=== PATIENT | male | born 2000 | race Hispanic/Latino ===

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

== ENCOUNTER 2019-09-16 12:05 | Emergency (ER) | payer SELFPAY ==
--- NOTE | 2019-09-16 13:38 | RAD REPORT ---
EXAM DESCRIPTION: RAD - Humerus Right - 09/16/2019 1:18 pm CLINICAL HISTORY: Right arm pain status post trauma FINDINGS: No fracture is seen
--- NOTE | 2019-09-16 14:10 | EDPHYS ---
Physician Documentation [facility] Name: Mauro Ruth Age: 18 yrs Sex: Male : 2000 Arrival Date: 09/16/2019 Time: 12:07 Bed 12 Private MD: Unknown, Unknown ED Physician Eddie Mccullough HPI: 09/16 12:29 This 18 yrs old Male presents to ER via Ambulatory with complaints of Arm Pain.jmm 12:29 The patient or guardian complains of injury, pain. Onset: The symptoms/episode jmm began/occurred acutely, 1 week(s) ago. Modifying factors: The symptoms are alleviated by nothing. the symptoms are aggravated by movement. Associated signs and symptoms: Pertinent negatives: weakness. This is a 18 year old male with no chronic medical conditions that presents to the ED with complaints of right arm pain which began after hitting his elbow against metal 1 week ago. Patient states he developed a bruise 1 day later. States having some localized pain when he use the arm for strenuous activity. . Historical: - Allergies: 12:21 No Known Allergies; aa5 - PMHx: 12:21 None; aa5 - PSHx: 12:21 None; aa5 - Immunization history:: Adult Immunizations unknown. - Social history:: Smoking status: Patient/guardian denies using tobacco. - Ebola Screening: : No symptoms or risks identified at this time. ROS: 12:29 Constitutional: Negative for fever, chills, and weight loss, Cardiovascular: Negative jmm for chest pain, palpitations, and edema, Respiratory: Negative for shortness of breath, cough, wheezing, and pleuritic chest pain. 12:29 MS/extremity: Positive for injury or acute deformity, ecchymosis, pain. 12:29 All other systems are negative. Exam: 12:29 Constitutional: This is a well developed, well nourished patient who is awake, alert, jmm and in no acute distress. Head/Face: atraumatic. Eyes: EOMI, no conjunctival erythema appreciated ENT: Moist Mucus Membranes Neck: Trachea midline, Supple Chest/axilla: Normal chest wall appearance and motion. Cardiovascular: Regular rate and rhythm. 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 12:29 Skin: ecchymosis noted to the right distal humeral region. 12:29 Neuro: Orientation: is normal, Mentation: is normal, Memory: is normal. 12:29 Psych: Behavior/mood is pleasant, cooperative. Vital Signs: 12:21 BP 127 / 70; Pulse 72; Resp 18 S; Temp 98.5(TE); Pulse Ox 99% on R/A; Pain 8/10; aa5 MDM: 12:23 Patient medically screened. [facility] 12:32 Data reviewed: vital signs, nurses notes. Counseling: I had a detailed discussion with fiona the patient and/or guardian regarding: the historical points, exam findings, and any diagnostic results supporting the discharge/admit diagnosis, the need for outpatient follow up, to return to the emergency department if symptoms worsen or persist or if there are any questions or concerns that arise at home. ED course: FROM appreciated to the right elbow, no bony tenderness. Arm is NVI. I do not suspect fracture. Patient is advised to follow up with pcp and return to the ED if patient continues to have pain. . 09/16 12:34 Order name: Humerus Right XRAY; Complete Time: 14:08 [facility] Administered Medications: No medications were administered Disposition: 09/17 06:42 Co-signature as Attending Physician, Eddie Mccullough MD I agree with the assessment and tw4 plan of care. Disposition: 09/16/19 14:09 Discharged to Home. Impression: Contusion of right upper arm. - Condition is Stable. - Discharge Instructions: Contusion. - Work release form, Medication Reconciliation Form, Thank You Letter, Antibiotic Education, Prescription Opioid Use form. - Follow up: Private Physician; When: 2 - 3 days; Reason: Recheck today's complaints, Continuance of care, Re-evaluation by your physician. Signatures: Dispatcher [employer] EDMS Chester Gonzalez PA PA jmm Calderon, Audri, RN RN aa5 Eddie Mccullough MD MD tw4 Corrections: (The following items were deleted from the chart) 09/16 14:16 14:09 09/16/2019 14:09 Discharged to Home. Impression: Contusion of right upper arm. aa5 Condition is Stable. Forms are Medication Reconciliation Form, Thank You Letter, Antibiotic Education, Prescription Opioid Use. Follow up: Private Physician; When: 2 - 3 days; Reason: Recheck today's complaints, Continuance of care, Re-evaluation by your physician. fiona
--- NOTE | 2019-09-16 14:10 | ER ---
Nurse's Notes [facility] Name: Mauro Ruth Age: 18 yrs Sex: Male : 2000 Arrival Date: 09/16/2019 Time: 12:07 Bed 12 Private MD: Unknown, Unknown Diagnosis: Contusion of right upper arm Presentation: 09/16 12:20 Presenting complaint: Patient states: "I hit my right arm on some metal at work about a aa5 week ago but the pain has been getting worse". Bruising noted to right upper arm. Transition of care: patient was not received from another setting of care. Onset of symptoms was 2019. Risk Assessment: Do you want to hurt yourself or someone else? Patient reports no desire to harm self or others. Initial Sepsis Screen: Does the patient meet any 2 criteria? No. Patient's initial sepsis screen is negative. Does the patient have a suspected source of infection? No. Patient's initial sepsis screen is negative. Care prior to arrival: None. 12:20 Acuity: KATHY 4 aa5 12:20 Method Of Arrival: Ambulatory aa5 Historical: - Allergies: 12:21 No Known Allergies; aa5 - PMHx: 12:21 None; aa5 - PSHx: 12:21 None; aa5 - Immunization history:: Adult Immunizations unknown. - Social history:: Smoking status: Patient/guardian denies using tobacco. - Ebola Screening: : No symptoms or risks identified at this time. Screenin:20 Abuse screen: Denies threats or abuse. Nutritional screening: No deficits noted. aa5 Tuberculosis screening: No symptoms or risk factors identified. Fall Risk None identified. Assessment: 12:20 General: Appears comfortable, Behavior is calm, cooperative. Pain: Complains of pain in aa5 right tricep Pain does not radiate. Pain currently is 8 out of 10 on a pain scale. Quality of pain is described as aching, crampy, Is intermittent, Aggravated by movement to right arm. Neuro: Level of Consciousness is awake, alert, obeys commands, Oriented to person, place, time, situation. Cardiovascular: Patient's skin is warm and dry. Respiratory: Airway is patent Respiratory effort is even, unlabored, Respiratory pattern is regular, symmetrical. GI: No signs and/or symptoms were reported involving the gastrointestinal system. : No signs and/or symptoms were reported regarding the genitourinary system. EENT: No signs and/or symptoms were reported regarding the EENT system. Derm: Skin is pink, warm \\T\\ dry. Bruising that is dark purple, green, on right tricep. Musculoskeletal: Range of motion: intact in all extremities. 14:16 Reassessment: Patient is alert, oriented x 3, equal unlabored respirations, skin aa5 warm/dry/pink. Vital Signs: 12:21 BP 127 / 70; Pulse 72; Resp 18 S; Temp 98.5(TE); Pulse Ox 99% on R/A; Pain 8/10; aa5 ED Course: 12:07 Patient arrived in ED. ag5 12:07 Unknown, Unknown is Private Physician. ag5 12:11 Chester Gonzalez PA is PHCP. [facility] 12:11 Eddie Mccullough MD is Attending Physician. [facility] 12:21 Triage completed. aa5 12:21 Arm band placed on. aa5 12:21 Patient has correct armband on for positive identification. Call light in reach. Adult aa5 w/ patient. 12:22 Angelita Jaramillo, RN is Primary Nurse. aa5 13:24 Humerus Right XRAY In Process Unspecified. EDMS 14:16 No provider procedures requiring assistance completed. Patient did not have IV access aa5 during this emergency room visit. Administered Medications: No medications were administered Outcome: 14:09 Discharge ordered by . [facility] 14:16 Discharged to home ambulatory. aa5 14:16 Condition: stable 14:16 Discharge instructions given to patient, Instructed on discharge instructions, follow up and referral plans. Demonstrated understanding of instructions, follow-up care. 14:16 Patient left the ED. aa5 Signatures: Dispatcher [employer] EDMS Chester Gonzalez PA PA jmm Calderon, Audri, RN RN aa5 Rosa Maria Ramirez ag5
[2019-09-16 14:28] VITALS: BP 127/70; TEMP 98.5; O2SAT 99
== END 2019-09-16 14:16 | disposition home or self-care (01) ==
LOC: ER 12:05
DX: S40.021A Contusion of right upper arm, initial encounter (principal); W22.8XXA Striking against or struck by other objects, initial encounter; Y93.89 Activity, other specified; Y92.9 Unspecified place or not applicable; Y99.0 Civilian activity done for income or pay
CPT/HCPCS: 99283

== ENCOUNTER 2019-11-01 04:06 | Emergency (ER) | payer SELFPAY ==
[2019-11-01] MEDS ORDERED: ONDANSETRON 4 MG/2 ML VIAL ONE (05:40)
[2019-11-01] MEDS ORDERED: MORPHINE 4 MG/ML SYR ONE (05:40)
[2019-11-01] MEDS ORDERED: TETANUS & DIPHTHERIA TOX,ADULT 0.5 ML VIAL ONE (05:41)
[2019-11-01] MEDS ORDERED: CEFAZOLIN/SWI 1gm 1 GM/10 ML SYR ONE (05:41)
[2019-11-01 05:54] LABS: Absolute Lymphocytes (CBC) 2.3 K/uL (0.7-4.9); Basophils % 0.7 % (0-1.3); Hematocrit 43.4 % (39.6-49.0); MPV 7.6 fL (7.6-11.3); RBC Red Blood Cell Count 4.45 M/uL (4.33-5.43)
[2019-11-01 06:09] LABS: ALT/SGPT 29 U/L (12-78); AST/SGOT 26 U/L (15-37); Albumin 4.1 g/dL (3.4-5.0); Alkaline Phosphatase 72 U/L (45-117); BUN Blood Urea Nitrogen 12 mg/dL (7-18); Bicarbonate 25 mmol/L (21-32); Bilirubin Total 0.3 mg/dL (0.2-1.0); Glucose Level 97 mg/dL (74-106); Potassium 3.8 mmol/L (3.5-5.1); Protein, Total 7.4 g/dL (6.4-8.2); Sodium Level 142 mmol/L (136-145)
--- NOTE | 2019-11-01 06:50 | ER ---
Nurse's Notes [facility] Name: Mauro Ruth Age: 18 yrs Sex: Male : 2000 Arrival Date: 11/01/2019 Time: 04:08 Bed 4 Private MD: Diagnosis: Fall (on) (from) other stairs and steps;Zygomatic fracture, unspecified-left and the nasal process of the maxilla;Fracture of nasal bones;Laceration without foreign body of other part of head Presentation: 11/01 04:22 Presenting complaint: Patient states: Patient was walking up stairs of front porch and lp1 tripped, falling onto concrete, hitting left side of head; Denies any LOC, any other injuries; States feeling like vision is blurry to left eye. Transition of care: patient was not received from another setting of care. Mechanism of Injury: The problem was sustained at home, resulted from a fall, slipped, down stairs. Onset of symptoms was November 01, 2019 at 01:00. Risk Assessment: Do you want to hurt yourself or someone else? Patient reports no desire to harm self or others. Initial Sepsis Screen: Does the patient meet any 2 criteria? No. Patient's initial sepsis screen is negative. Does the patient have a suspected source of infection? No. Patient's initial sepsis screen is negative. Care prior to arrival: None. 04:22 Method Of Arrival: Ambulatory lp1 04:22 Acuity: KATHY 3 lp1 Historical: - Allergies: 04:25 No Known Allergies; lp1 - Home Meds: 04:25 None [Active]; lp1 - PMHx: 04:25 None; lp1 - PSHx: 04:25 Appendectomy; Arm surgery; lp1 - Immunization history:: Adult Immunizations up to date. - Coronavirus screen:: The patient has NOT traveled to [place] in the past 14 days. The patient has NOT had contact with known/suspected case of Coronavirus?. - Social history:: Smoking status: Patient reports the use of cigarette tobacco products, denies chronic smoking, but will smoke occasionally. - Family history:: not pertinent. - Ebola Screening: : No symptoms or risks identified at this time. Screenin:27 Abuse screen: Denies threats or abuse. Denies injuries from another. Nutritional lp1 screening: No deficits noted. Tuberculosis screening: No symptoms or risk factors identified. Fall Risk None identified. Assessment: 04:25 General: Appears in no apparent distress. Behavior is calm, cooperative, appropriate lp1 for age. Pain: Complains of pain in left temporal area, left mormon, left zygomatic area, left cheek and left mandible Pain currently is 8 out of 10 on a pain scale. Quality of pain is described as aching. Neuro: Level of Consciousness is awake, alert, obeys commands, Oriented to person, place, situation, Gait is steady, Pupils are PERRLA, Intact Reports blurred vision in left eye dizziness, headache. Cardiovascular: Patient's skin is warm and dry. Respiratory: Respiratory effort is even, unlabored. GI: Abdomen is non-distended. : No signs and/or symptoms were reported regarding the genitourinary system. EENT: No signs and/or symptoms were reported regarding the EENT system. Derm: Abrasion to left mormon area; Bruising to left mormon, cheek. Musculoskeletal: Circulation, motion, and sensation intact. 05:10 Reassessment: Patient states readiness to go home at this time; states "I just want to lp1 make sure I didn't need any stitches"; Patient educated on need for imaging due to significant amount of bruising to left side of face and limited ROM to jaw; Continues to states readiness to go home; Provider notified. 05:15 Reassessment: Dr. Cullen at bedside to discuss recommendation of imaging for safety lp1 of patient; Patient demonstrates understanding, agrees to have CT of head. 05:18 Reassessment: Patient to CT by wheelchair. lp1 05:31 Reassessment: Verbal order from Dr. Cullen for Morphine 4mg IV, Zofran 4mg IV for lp1 patient complaint of head throbbing. 06:39 Reassessment: Patient states no relief with medication administered; Provider notified. lp1 07:09 Reassessment: Patient states nausea; Provider notified; verbal order from Provider for lp1 Richards 10-325mg PO, Zofran 4mg PO. Reassessment: Patient demonstrates understanding of care of facial injuries, discharge instructions given by Dr. Cullen and follow up. Vital Signs: 04:24 BP 138 / 83; Pulse 105; Resp 18; Temp 98.4(O); Pulse Ox 100% on R/A; Weight 99.79 kg; lp1 Height 5 ft. 8 in. (172.72 cm); Pain 8/10; 06:30 BP 112 / 60; Pulse 90; Resp 18; Pulse Ox 99% on R/A; lp1 04:24 Body Mass Index 33.45 (99.79 kg, 172.72 cm) lp1 [place] Coma Score: 04:22 Eye Response: spontaneous(4). Verbal Response: oriented(5). Motor Response: obeys lp1 commands(6). Total: 15. ED Course: 04:08 Patient arrived in ED. ds1 04:09 Howard Patel, OSORIO is Primary Nurse. rv 04:24 Triage completed. lp1 04:24 Arm band placed on. lp1 04:25 Wound care: to laceration located on left temporal area was cleaned with Hibiclens, rv irrigated with normal saline, Patient tolerated well. NOT BLEEDING. LESS THAN HALF AN INCH IN LENGTH. 04:27 Patient has correct armband on for positive identification. Placed in gown. lp1 04:42 Conrad Cullen MD is Attending Physician. kedar 05:12 Radiology exam delayed due to Currently having X-Rays completed. kw1 05:50 Initial lab(s) drawn, by me, sent to lab. Inserted saline lock: 20 gauge in left lp1 antecubital area, using aseptic technique. 06:47 Baylee Looney MD is Referral Physician. kedar 07:09 No provider procedures requiring assistance completed. IV discontinued, No lp1 redness/swelling at site. Pressure dressing applied. 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 Exp: lp1 08/08/2021. Lot #: [id number]. } Route: IM; Site: left deltoid; 06:40 Follow up: Response: No adverse reaction lp1 07:11 Drug: Zofran 4 mg Route: PO; lp1 07:12 Follow up: Response: Medication administered at discharge. lp1 07:12 Drug: Richards 10 mg-325 mg 1 tabs Route: PO; lp1 07:12 Follow up: Response: Medication administered at discharge. lp1 Intake: 06:40 IV: 10ml; Total: 10ml. lp1 Outcome: 06:50 Discharge ordered by . kedar 07:11 Discharged to home ambulatory, with family. lp1 07:11 Condition: good 07:11 Discharge instructions given to patient, family, Instructed on discharge instructions, follow up and referral plans. medication usage, Demonstrated understanding of instructions, follow-up care, medications, Prescriptions given X 2. 07:12 Patient left the ED. lp1 Signatures: Conrad Cullen MD MD cha Sanford, Demi ds1 Nichole Slater RN RN lp1 Kayla Berry Ronaldo, OSORIO RN rv Corrections: (The following items were deleted from the chart) 04:29 04:22 Mechanism of Injury: resulted from a fall, slipped, lp1 lp1
--- NOTE | 2019-11-01 06:51 | EDPHYS ---
Physician Documentation [facility] Name: Mauro Ruth Age: 18 yrs Sex: Male : 2000 Arrival Date: 11/01/2019 Time: 04:08 Bed 4 Private MD: Conrad Myrick HPI: 11/01 05:03 This 18 yrs old Male presents to ER via Ambulatory with complaints of Closed kedar Head Injury-Adult, Blurred Vision. 05:03 The patient or guardian reports injury, a laceration, .25 cm(s), pain, swelling, kedar tenderness. The complaints affect the left ear, left christian, left jaw, left frontal area, left temporal area, left zygomatic area and left cheek. Context of injury: The problem was sustained at home. Onset: The symptoms/episode began/occurred 4 hour(s) ago. Associated signs and symptoms: The patient has no apparent associated signs or symptoms. The patient presents with decreased mental status. Severity of symptoms: At their worst the symptoms were mild, moderate, in the emergency department the symptoms are unchanged. Historical: - Allergies: 04:25 No Known Allergies; lp1 - Home Meds: 04:25 None [Active]; lp1 - PMHx: 04:25 None; lp1 - PSHx: 04:25 Appendectomy; Arm surgery; lp1 - Immunization history:: Adult Immunizations up to date. - Coronavirus screen:: The patient has NOT traveled to [place] in the past 14 days. The patient has NOT had contact with known/suspected case of Coronavirus?. - Social history:: Smoking status: Patient reports the use of cigarette tobacco products, denies chronic smoking, but will smoke occasionally. - Family history:: not pertinent. - Ebola Screening: : No symptoms or risks identified at this time. ROS: 05:03 Constitutional: Negative for fever, chills, and weight loss, Eyes: Negative for injury, kedar pain, redness, and discharge, Neck: Negative for injury, pain, and swelling, Cardiovascular: Negative for chest pain, palpitations, and edema, Respiratory: Negative for shortness of breath, cough, wheezing, and pleuritic chest pain, Abdomen/GI: Negative for abdominal pain, nausea, vomiting, diarrhea, and constipation, Back: Negative for injury and pain, : Negative for injury, bleeding, discharge, and swelling, MS/Extremity: Negative for injury and deformity, Skin: Negative for injury, rash, and discoloration, Neuro: Negative for headache, weakness, numbness, tingling, and seizure, Psych: Negative for depression, anxiety, suicide ideation, homicidal ideation, and hallucinations, Allergy/Immunology: Negative for hives, rash, and allergies, Endocrine: Negative for neck swelling, polydipsia, polyuria, polyphagia, and marked weight changes, Hematologic/Lymphatic: Negative for swollen nodes, abnormal bleeding, and unusual bruising. 05:03 ENT: Positive for injury or acute deformity, of the left ear, left cheek, left eye, left christian, left jaw, left frontal area, left temporal area and left zygomatic area. Exam: 05:03 Constitutional: This is a well developed, well nourished patient who is awake, alert, kedar and in no acute distress. Eyes: Pupils equal round and reactive to light, extra-ocular motions intact. Lids and lashes normal. Conjunctiva and sclera are non-icteric and not injected. Cornea within normal limits. Periorbital areas with no swelling, redness, or edema. ENT: Nares patent. No nasal discharge, no septal abnormalities noted. Tympanic membranes are normal and external auditory canals are clear. Oropharynx with no redness, swelling, or masses, exudates, or evidence of obstruction, uvula midline. Mucous membranes moist. Neck: Trachea midline, no thyromegaly or masses palpated, and no cervical lymphadenopathy. Supple, full range of motion without nuchal rigidity, or vertebral point tenderness. No Meningismus. Chest/axilla: Normal chest wall appearance and motion. Nontender with no deformity. No lesions are appreciated. Cardiovascular: Regular rate and rhythm with a normal S1 and S2. No gallops, murmurs, or rubs. Normal PMI, no JVD. No pulse deficits. Respiratory: Lungs have equal breath sounds bilaterally, clear to auscultation and percussion. No rales, rhonchi or wheezes noted. No increased work of breathing, no retractions or nasal flaring. Abdomen/GI: Soft, non-tender, with normal bowel sounds. No distension or tympany. No guarding or rebound. No evidence of tenderness throughout. Back: No spinal tenderness. No costovertebral tenderness. Full range of motion. Male : Normal genitalia with no discharge or lesions. Skin: Warm, dry with normal turgor. Normal color with no rashes, no lesions, and no evidence of cellulitis. MS/ Extremity: Pulses equal, no cyanosis. Neurovascular intact. Full, normal range of motion. Neuro: Awake and alert, GCS 15, oriented to person, place, time, and situation. Cranial nerves II-XII grossly intact. Motor strength 5/5 in all extremities. Sensory grossly intact. Cerebellar exam normal. Normal gait. Psych: Awake, alert, with orientation to person, place and time. Behavior, mood, and affect are within normal limits. 05:03 Head/face: Noted is contusion, hematoma, a laceration(s), that is superficial, .25 cm(s), swelling, tenderness. Vital Signs: 04:24 BP 138 / 83; Pulse 105; Resp 18; Temp 98.4(O); Pulse Ox 100% on R/A; Weight 99.79 kg; lp1 Height 5 ft. 8 in. (172.72 cm); Pain 8/10; 06:30 BP 112 / 60; Pulse 90; Resp 18; Pulse Ox 99% on R/A; lp1 04:24 Body Mass Index 33.45 (99.79 kg, 172.72 cm) lp1 [place] Coma Score: 04:22 Eye Response: spontaneous(4). Verbal Response: oriented(5). Motor Response: obeys lp1 commands(6). Total: 15. MDM: 04:[address] [facility] 05:03 Data reviewed: vital signs, nurses notes, lab test result(s), radiologic studies, CT [facility] scan. 11/01 05:02 Order name: CBC with Diff [facility] 11/01 05:02 Order name: Comprehensive Metabolic Panel [facility] 11/01 05:02 Order name: CT Head C Spine [facility] 11/01 05:02 Order name: CT Facial Bones W/O Con [facility] 11/01 06:02 Order name: CBC with Automated Diff; Complete Time: 06:05 EDMS 11/01 06:10 Order name: Comprehensive Metabolic Panel; Complete Time: 06:45 EDMD 11/01 05:02 Order name: Chest Single View XRAY [facility] Administered Medications: 05:50 Drug: morphine 4 mg Route: IVP; Site: left antecubital; lp1 06:40 Follow up: Response: No change in condition; RASS: Alert and Calm (0) lp1 05:50 Drug: Zofran 4 mg Route: IVP; Site: left antecubital; lp1 06:40 Follow up: Response: No adverse reaction lp1 05:55 Drug: Ancef 1 grams Route: IVPB; Site: left antecubital; lp1 06:40 Follow up: IV Status: Completed infusion; IV Intake: 10ml lp1 06:00 Drug: Tetanus-Diphtheria Toxoid Adult 0.5 ml {[employer]: [employer]. Exp: lp1 08/08/2021. Lot #: [id number]. } Route: IM; Site: left deltoid; 06:40 Follow up: Response: No adverse reaction lp1 07:11 Drug: Zofran 4 mg Route: PO; lp1 07:12 Follow up: Response: Medication administered at discharge. lp1 07:12 Drug: [place] 10 mg-325 mg 1 tabs Route: PO; lp1 07:12 Follow up: Response: Medication administered at discharge. lp1 Disposition: 11/01/19 06:50 Discharged to Home. Impression: Fall (on) (from) other stairs and steps, Zygomatic fracture, unspecified - left and the nasal process of the maxilla, Fracture of nasal bones, Laceration without foreign body of other part of head. - Condition is Stable. - Discharge Instructions: Laceration Care, Adult, Facial Laceration, Nasal Fracture, Zygoma Fracture, Laceration Care, Adult, [id number], Facial Laceration, [id number], Nasal Fracture, [id number]. - Prescriptions for Keflex 500 mg Oral Capsule - take 1 capsule by ORAL route every 6 hours for 10 days; 40 capsule. Tylenol- Codeine #3 300-30 mg Oral Tablet - take 2 tablet by ORAL route every 6 hours As needed; 30 tablet. - Work release form, Medication Reconciliation Form, Thank You Letter, Antibiotic Education, Prescription Opioid Use form. - Follow up: Private Physician; When: 2 - 3 days; Reason: Recheck today's complaints, Continuance of care, Re-evaluation by your physician. Follow up: Baylee Looney MD; When: 2 - 3 days; Reason: Recheck today's complaints, Re-evaluation by your physician. - Problem is new. - Symptoms have improved. Signatures: Dispatcher [employer] EDConrad Soriano MD MD cha Pena, Laura, RN RN lp1 Corrections: (The following items were deleted from the chart) 06:52 06:50 11/01/2019 06:50 Discharged to Home. Impression: Fall (on) (from) other stairs kedar and steps; Zygomatic fracture, unspecified - left and the nasal process of the maxilla. Condition is Stable. Forms are Medication Reconciliation Form, Thank You Letter, Antibiotic Education, Prescription Opioid Use. Follow up: Private Physician; When: 2 - 3 days; Reason: Recheck today's complaints, Continuance of care, Re-evaluation by your physician. Follow up: Baylee Looney; When: 2 - 3 days; Reason: Recheck today's complaints, Re-evaluation by your physician. Problem is new. Symptoms have improved. [facility] 06:52 06:52 11/01/2019 06:50 Discharged to Home. Impression: Fall (on) (from) other stairs kedar and steps; Zygomatic fracture, unspecified - left and the nasal process of the maxilla; Fracture of nasal bones. Condition is Stable. Discharge Instructions: Laceration Care, Adult, Zygoma Fracture, Laceration Care, Adult, [id number]. Forms are Medication Reconciliation Form, Thank You Letter, Antibiotic Education, Prescription Opioid Use. Follow up: Private Physician; When: 2 - 3 days; Reason: Recheck today's complaints, Continuance of care, Re-evaluation by your physician. Follow up: Baylee Looney; When: 2 - 3 days; Reason: Recheck today's complaints, Re-evaluation by your physician. Problem is new. Symptoms have improved. [facility] 07:12 06:52 11/01/2019 06:50 Discharged to Home. Impression: Fall (on) (from) other stairs lp1 and steps; Zygomatic fracture, unspecified - left and the nasal process of the maxilla; Fracture of nasal bones; Laceration without foreign body of other part of head. Condition is Stable. Discharge Instructions: Laceration Care, Adult, Zygoma Fracture, Laceration Care, Adult, [id number]. Forms are Medication Reconciliation Form, Thank You Letter, Antibiotic Education, Prescription Opioid Use. Follow up: Private Physician; When: 2 - 3 days; Reason: Recheck today's complaints, Continuance of care, Re-evaluation by your physician. Follow up: Baylee Looney; When: 2 - 3 days; Reason: Recheck today's complaints, Re-evaluation by your physician. Problem is new. Symptoms have improved. kedar
[2019-11-01] MEDS ORDERED: HYDROCODONE/APAP 10/325 TAB ONE (07:10)
[2019-11-01] MEDS ORDERED: ONDANSETRON 4 MG (ODT) TAB ONE (07:11)
[2019-11-01 07:28] VITALS: TEMP 98.4
[2019-11-01 07:29] VITALS: BP 112/60; O2SAT 99
--- NOTE | 2019-11-01 10:37 | RAD REPORT ---
EXAM DESCRIPTION: CT - Facial Bones W/ Mpr - 11/01/2019 7:04 am CLINICAL HISTORY: FACIAL PAIN COMPARISON: None available TECHNIQUE: Axial CT of the facial bone obtained without contrast. Coronal and sagittal reformatted i mages available. FINDINGS: Orbits: Orbital floors and glez are intact. Intraorbital contents: The globes are intact. Extraocular muscles are symmetric. No intraconal fat st randing. Nasal bones: Intact. Maxilla: The maxillary hard palate is intact. Maxillary antral glez are intact. Nondisplaced fractur e involving the nasal process of the maxilla. Sinuses: Normal mucosal thickening of the maxillary sinuses. Zygomatic processes: Right zygomatic processes are intact. Comminuted minimally displaced fracture of the left zygomatic process. Pterygoid plates: Intact Mandible: Intact. No mandibular condylar dislocation. Skull base/cervical spine: Visualized portions of the skull base and cervical spine are intact. Visua lized mastoid air cells are well aerated. Subcutaneous soft tissues: Contusion the left facial soft tissues. Neck soft tissues: No definite abnormality involving the nasopharynx, oropharynx, or hypopharynx. Fos sa of Rosenmuller are clear. Parotid glands and submandibular glands are unremarkable. No cervical ly mphadenopathy. IMPRESSION: 1. Acute comminuted minimally displaced fracture of the left zygomatic processes with overlying soft tissue edema. 2. Nondisplaced fracture involving the nasal process of the maxilla. This exam was performed according to our departmental dose-optimization program, which includes autom ated exposure control, adjustment of the mA and/or kV according to patient size and/or use of iterati ve reconstruction technique. Electronically signed by: Edmundo Rudd 11/01/2019 6:24 AM TRAINING AND DEVELOPMENT REP Due to temporary technical issues with the PACS/Fluency reporting system, reports are being signed by the in house radiologist as a courtesy to ensure prompt reporting. The interpreting radiologist is f justinely responsible for the content of the report.
--- NOTE | 2019-11-01 10:37 | RAD REPORT ---
EXAM DESCRIPTION: CT - [id number] - 11/01/2019 7:04 am CLINICAL HISTORY: Pain;Swelling COMPARISON: None available TECHNIQUE: Axial CT of the head obtained from the skull apex to the skull base without contrast. Axi al CT images of the cervical spine obtained from the skull base through the thoracic inlet. Sagittal and coronal reformatted images available. FINDINGS: CT head: No acute intracranial hemorrhage identified. No mass, mass effect, shift of the midline, abnormal ext ra-axial fluid collection or CT evidence of acute ischemic change identified. The ventricular system is unremarkable. No acute abnormalities of the supratentorial white matter, basal ganglia, cerebell um, or brainstem. The visualized paranasal sinuses and the mastoids are clear. Left scalp soft tissue contusion. No sku ll fracture identified. Visualized orbits and globes are unremarkable. Cervical CT: Straightening of the cervical lordosis may be secondary to patient positioning. The atlantoaxial, a tlantodental, and occipitoatlantal intervals are preserved. No fracture identified. Vertebral body height preserved. Prevertebral soft tissues are unremarkable. Intervertebral disc height preserved. Visualized skull base is intact. No fracture of the visualized facial bones. Visualized mastoid air c ells and paranasal sinuses are well aerated. Visualized thyroid is unremarkable. No cervical lymphadenopathy. No pneumothorax in the visualized lung apices. IMPRESSION: 1. No acute intracranial abnormality. 2. No acute fracture or subluxation of the cervical spine. This exam was performed according to our departmental dose-optimization program, which includes autom ated exposure control, adjustment of the mA and/or kV according to patient size and/or use of iterati ve reconstruction technique. Electronically signed by: Edmundo Rudd 11/01/2019 6:15 AM BREAKER ENGINEER Due to temporary technical issues with the PACS/Fluency reporting system, reports are being signed by the in house radiologist as a courtesy to ensure prompt reporting. The interpreting radiologist is f ully responsible for the content of the report.
== END 2019-11-01 07:12 | disposition home or self-care (01) ==
LOC: ER 04:06
DX: S02.2XXA Fracture of nasal bones, initial encounter for closed fracture (principal); S02.40FA Zygomatic fracture, left side, initial encounter for closed fracture; S02.40DA Maxillary fracture, left side, initial encounter for closed fracture; W10.9XXA Fall (on) (from) unspecified stairs and steps, initial encounter; Y93.9 Activity, unspecified; Y92.9 Unspecified place or not applicable; Z72.0 Tobacco use; Z23 Encounter for immunization
CPT/HCPCS: 36415; 70450; 70486; 72125; 76377; 80053; 85025; 90471; 90714; 96365; 96375; 99284; J0690; J2405

== ENCOUNTER 2020-02-06 12:54 | Emergency (ER) | payer SELFPAY ==
[2020-02-06 13:57] LABS: Absolute Lymphocytes (CBC) 1.2 K/uL (0.7-4.9); Basophils % 0.6 % (0-1.3); Hematocrit 47.7 % (39.6-49.0); Lymphocytes % 12.9 % (15.3-44.8); MPV 8.3 fL (7.6-11.3)
[2020-02-06] MEDS ORDERED: NA CHLORIDE 0.9% 1,000 ML ONE (14:02)
[2020-02-06] MEDS ORDERED: FAMOTIDINE 20 MG/2 ML VIAL IV ONE (14:02)
[2020-02-06] MEDS ORDERED: ONDANSETRON 4 MG/2 ML VIAL ONE (14:02)
[2020-02-06 14:11] LABS: ALT/SGPT 28 U/L (12-78); AST/SGOT 18 U/L (15-37); Albumin 4.2 g/dL (3.4-5.0); Alkaline Phosphatase 79 U/L (45-117); BUN Blood Urea Nitrogen 7 mg/dL (7-18); Bicarbonate 26 mmol/L (21-32); Bilirubin Direct 0.1 mg/dL (0-0.2); Bilirubin Total 0.4 mg/dL (0.2-1.0); Glucose Level 109 mg/dL (74-106); Lipase 103 U/L (73-393); Potassium 3.8 mmol/L (3.5-5.1); Protein, Total 7.9 g/dL (6.4-8.2); Sodium Level 140 mmol/L (136-145)
[2020-02-06] MEDS ORDERED: KETOROLAC 30 MG/ML INJ ONE (15:14)
[2020-02-06 15:27] VITALS: TEMP 98.1; O2SAT 100
[2020-02-06 15:29] VITALS: BP 110/65
--- NOTE | 2020-02-09 17:04 | EDPHYS ---
Physician Documentation [facility] Name: Mauro Ruth Age: 19 yrs Sex: Male : 2000 Arrival Date: 02/06/2020 Time: 12:56 Bed 18 Private MD: Conrad Myrick HPI: 02/05 14:17 This 19 yrs old Male presents to ER via Ambulatory with complaints of jr8 Nausea/Vomiting. 14:17 The patient presents to the emergency department with nausea, vomiting. Onset: The jr8 symptoms/episode began/occurred gradually, 4 day(s) ago. Possible causes: unknown. The symptoms are aggravated by food , The symptoms are alleviated by nothing. Associated signs and symptoms: The patient has no apparent associated signs or symptoms. Severity of symptoms: At their worst the symptoms were mild in the emergency department the symptoms are unchanged. The patient has not experienced similar symptoms in the past. The patient has not recently seen a physician. Stated that he had Barr's on Sunday. Since then has had vomiting without diarrhea or abdominal pain . Historical: - Allergies: 13:09 No Known Allergies; ph - Home Meds: 13:09 None [Active]; ph - PMHx: 13:09 None; ph - PSHx: 13:09 Appendectomy; Arm surgery; ph - Immunization history:: Adult Immunizations unknown. - Social history:: Smoking status: Patient reports the use of cigarette tobacco products, denies chronic smoking, but will smoke occasionally. ROS: 14:17 Eyes: Negative for injury, pain, redness, and discharge, ENT: Negative for injury, jr8 pain, and discharge, Neck: Negative for injury, pain, and swelling, Cardiovascular: Negative for chest pain, palpitations, and edema, Respiratory: Negative for shortness of breath, cough, wheezing, and pleuritic chest pain, Back: Negative for injury and pain, MS/Extremity: Negative for injury and deformity, Skin: Negative for injury, rash, and discoloration, Neuro: Negative for headache, weakness, numbness, tingling, and seizure. 14:17 Abdomen/GI: Positive for nausea and vomiting, Negative for abdominal pain, diarrhea, constipation, abdominal cramps, abdominal distension, anorexia, dysphagia, hematemesis, black/tarry stool, rectal pain, rectal bleeding, bowel incontinence, flatulence. Exam: 14:17 Eyes: Pupils equal round and reactive to light, extra-ocular motions intact. Lids and jr8 lashes normal. Conjunctiva and sclera are non-icteric and not injected. Cornea within normal limits. Periorbital areas with no swelling, redness, or edema. ENT: Nares patent. No nasal discharge, no septal abnormalities noted. Tympanic membranes are normal and external auditory canals are clear. Oropharynx with no redness, swelling, or masses, exudates, or evidence of obstruction, uvula midline. Mucous membranes moist. Neck: Trachea midline, no thyromegaly or masses palpated, and no cervical lymphadenopathy. Supple, full range of motion without nuchal rigidity, or vertebral point tenderness. No Meningismus. Cardiovascular: Regular rate and rhythm with a normal S1 and S2. No gallops, murmurs, or rubs. Normal PMI, no JVD. No pulse deficits. Respiratory: Lungs have equal breath sounds bilaterally, clear to auscultation and percussion. No rales, rhonchi or wheezes noted. No increased work of breathing, no retractions or nasal flaring. Abdomen/GI: Soft, non-tender, with normal bowel sounds. No distension or tympany. No guarding or rebound. No evidence of tenderness throughout. Back: No spinal tenderness. No costovertebral tenderness. Full range of motion. Skin: Warm, dry with normal turgor. Normal color with no rashes, no lesions, and no evidence of cellulitis. MS/ Extremity: Pulses equal, no cyanosis. Neurovascular intact. Full, normal range of motion. Neuro: Awake and alert, GCS 15, oriented to person, place, time, and situation. Cranial nerves II-XII grossly intact. Motor strength 5/5 in all extremities. Sensory grossly intact. Cerebellar exam normal. Normal gait. Vital Signs: 13:06 BP 130 / 78; Pulse 77; Resp 18; Temp 98.1; Pulse Ox 100% on R/A; Weight 101.6 kg; ph Height 5 ft. 10 in. (177.80 cm); 13:52 BP 121 / 60; Pulse 55; Resp 16 S; Pulse Ox 100% on R/A; ca1 14:32 BP 110 / 65; Pulse 61; Resp 16 S; Pulse Ox 100% on R/A; ca1 13:06 Body Mass Index 32.14 (101.60 kg, 177.80 cm) ph MDM: 13:21 Patient medically screened. [facility] 14:53 Data reviewed: vital signs, nurses notes, lab test result(s), and as a result, I will jr8 discharge patient. Data interpreted: Pulse oximetry: on room air is 100 %. Interpretation: normal. Counseling: I had a detailed discussion with the patient and/or guardian regarding: the historical points, exam findings, and any diagnostic results supporting the discharge/admit diagnosis, lab results, the need for outpatient follow up, a family practitioner, to return to the emergency department if symptoms worsen or persist or if there are any questions or concerns that arise at home. Response to treatment: the patient's symptoms have markedly improved after treatment. 02/05 13:22 Order name: Basic Metabolic Panel; Complete Time: 14:19 [facility] 02/05 13:22 Order name: CBC with Diff; Complete Time: 14:53 [facility] 02/05 13:22 Order name: Hepatic Function; Complete Time: 14:19 [facility] 02/05 13:22 Order name: Lipase; Complete Time: 14:19 [facility] 02/05 13:22 Order name: IV Saline Lock; Complete Time: 13:47 [facility] 02/05 13:22 Order name: Labs collected and sent; Complete Time: 13:47 Administered Medications: 13:58 Drug: Zofran (Ondansetron) 4 mg Route: IVP; Site: right antecubital; ca1 15:03 Follow up: Response: No adverse reaction; Nausea is decreased ca1 14:01 Drug: NS 0.9% 1000 ml Route: IV; Rate: 1000 ml; Site: right antecubital; ca1 15:03 Follow up: Response: No adverse reaction; IV Status: Completed infusion ca1 14:01 Drug: Pepcid 20 mg Route: IVP; Site: right antecubital; ca1 15:03 Follow up: Response: No adverse reaction ca1 15:08 Drug: TORadol - Ketorolac 15 mg Route: IVP; Site: right antecubital; ca1 15:16 Follow up: Response: No adverse reaction; Pain is decreased ca1 Disposition: 02/06 07:43 Co-signature as Attending Physician, Conrad Cullen MD I agree with the assessment and [facility] plan of care. Disposition: 02/06/20 14:53 Discharged to Home. Impression: Vomiting. - Condition is Stable. - Discharge Instructions: Nausea and Vomiting, Adult. - Prescriptions for Zofran 4 mg Oral Tablet - take 1 tablet by ORAL route every 12 hours As needed; 20 tablet. Pepcid 20 mg Oral Tablet - take 1 tablet by ORAL route once daily for 10 days; 10 tablet. - Medication Reconciliation Form, Thank You Letter, Antibiotic Education, Prescription Opioid Use form. - Follow up: Private Physician; When: As needed; Reason: Recheck today's complaints, Continuance of care, Re-evaluation by your physician. - Problem is new. - Symptoms have improved. Signatures: Dispatcher [employer] EDMS Conrad Cullen MD MD cha Roszak, Josh, PA PA jr8 Sonya Alfaro RN RN Barb Mcmahan RN RN ca1 Corrections: (The following items were deleted from the chart) 02/05 15:19 14:53 02/06/2020 14:53 Discharged to Home. Impression: Vomiting. Condition is Stable. ca1 Forms are Medication Reconciliation Form, Thank You Letter, Antibiotic Education, Prescription Opioid Use. Follow up: Private Physician; When: As needed; Reason: Recheck today's complaints, Continuance of care, Re-evaluation by your physician. Problem is new. Symptoms have improved. jr8
--- NOTE | 2020-02-09 17:04 | ER ---
Nurse's Notes [facility] [place], [place] Name: Mauro Ruth Age: 19 yrs Sex: Male : 2000 Arrival Date: 02/06/2020 Time: 12:56 Bed 18 Private MD: Diagnosis: Vomiting Presentation: 02/05 13:06 Chief complaint: Patient states: N/V x 1 week, denies abdominal pain, fever or ph diarrhea. Coronavirus screen: Proceed with normal triage. Ebola Screen: No symptoms or risks identified at this time. Initial Sepsis Screen: Does the patient meet any 2 criteria? No. Patient's initial sepsis screen is negative. Does the patient have a suspected source of infection? No. Patient's initial sepsis screen is negative. Risk Assessment: Do you want to hurt yourself or someone else? Patient reports no desire to harm self or others. Onset of symptoms was February 06, 2020. 13:06 Method Of Arrival: Ambulatory ph 13:06 Acuity: KATHY 3 ph Historical: - Allergies: 13:09 No Known Allergies; ph - Home Meds: 13:09 None [Active]; ph - PMHx: 13:09 None; ph - PSHx: 13:09 Appendectomy; Arm surgery; ph - Immunization history:: Adult Immunizations unknown. - Social history:: Smoking status: Patient reports the use of cigarette tobacco products, denies chronic smoking, but will smoke occasionally. Screenin:25 Abuse screen: Denies threats or abuse. Denies injuries from another. Nutritional ca1 screening: No deficits noted. Tuberculosis screening: No symptoms or risk factors identified. Fall Risk IV access (20 points). Assessment: 13:25 General: Appears in no apparent distress. comfortable, Behavior is calm, cooperative, ca1 appropriate for age. Pain: Denies pain. Neuro: Level of Consciousness is awake, alert, obeys commands, Oriented to person, place, time, situation. Cardiovascular: Heart tones S1 S2 present Capillary refill < 3 seconds Patient's skin is warm and dry. Pulses are all present. Respiratory: Airway is patent Respiratory effort is even, unlabored, Respiratory pattern is regular, symmetrical, Breath sounds are clear bilaterally. GI: Abdomen is round non-distended, Bowel sounds present X 4 quads. Abd is soft and non tender X 4 quads. Reports nausea, vomiting, since 3 days. : No signs and/or symptoms were reported regarding the genitourinary system. EENT: No signs and/or symptoms were reported regarding the EENT system. Derm: Skin is intact, is healthy with good turgor, Skin is pink, warm \T\ dry. Musculoskeletal: Circulation, motion, and sensation intact. Capillary refill < 3 seconds. 14:32 Reassessment: Patient appears in no apparent distress at this time. No changes from ca1 previously documented assessment. Patient and/or family updated on plan of care and expected duration. Pain level reassessed. Patient is alert, oriented x 3, equal unlabored respirations, skin warm/dry/pink. Vital Signs: 13:06 BP 130 / 78; Pulse 77; Resp 18; Temp 98.1; Pulse Ox 100% on R/A; Weight 101.6 kg; ph Height 5 ft. 10 in. (177.80 cm); 13:52 BP 121 / 60; Pulse 55; Resp 16 S; Pulse Ox 100% on R/A; ca1 14:32 BP 110 / 65; Pulse 61; Resp 16 S; Pulse Ox 100% on R/A; ca1 13:06 Body Mass Index 32.14 (101.60 kg, 177.80 cm) ph ED Course: 12:56 Patient arrived in ED. ag5 13:09 Triage completed. ph 13:09 Arm band placed on Patient placed in an exam room. ph 13:14 Barb Mcmahan, OSORIO is Primary Nurse. ca1 13:21 Sixto Tierney PA is PHCP. jr8 13:21 Conrad Cullen MD is Attending Physician. jr8 13:25 Patient has correct armband on for positive identification. Placed in gown. Bed in low ca1 position. Call light in reach. Side rails up X 1. Pulse ox on. NIBP on. Warm blanket given. 13:25 No provider procedures requiring assistance completed. ca1 13:41 Inserted saline lock: 20 gauge in right antecubital area, using aseptic technique. dh4 13:41 Initial lab(s) drawn, by ED staff, sent to lab. ca1 15:15 IV discontinued, intact, bleeding controlled, No redness/swelling at site. Pressure ca1 dressing applied. Administered Medications: 13:58 Drug: Zofran (Ondansetron) 4 mg Route: IVP; Site: right antecubital; ca1 15:03 Follow up: Response: No adverse reaction; Nausea is decreased ca1 14:01 Drug: NS 0.9% 1000 ml Route: IV; Rate: 1000 ml; Site: right antecubital; ca1 15:03 Follow up: Response: No adverse reaction; IV Status: Completed infusion ca1 14:01 Drug: Pepcid 20 mg Route: IVP; Site: right antecubital; ca1 15:03 Follow up: Response: No adverse reaction ca1 15:08 Drug: TORadol - Ketorolac 15 mg Route: IVP; Site: right antecubital; ca1 15:16 Follow up: Response: No adverse reaction; Pain is decreased ca1 Outcome: 14:53 Discharge ordered by MD. puga 15:18 Discharged to home ambulatory. ca1 15:18 Condition: stable 15:18 Discharge instructions given to patient, Instructed on discharge instructions, follow up and referral plans. medication usage, Demonstrated understanding of instructions, follow-up care, medications, Prescriptions given X 2. 15:19 Patient left the ED. ca1 Signatures: Sixto Tierney PA PA jr8 Hall, Patricia, RN RN Barb Mcmahan RN RN ca1 Rosa Maria Ramirez Oseas Lee [facility]
== END 2020-02-06 15:19 | disposition home or self-care (01) ==
LOC: ER 12:54
DX: R11.10 Vomiting, unspecified (principal); F17.210 Nicotine dependence, cigarettes, uncomplicated
CPT/HCPCS: 36415; 80048; 80076; 83690; 85025; 96361; 96374; 96375; 99284; J2405; J7030

== ENCOUNTER 2021-07-14 13:07 | Emergency (ER) | payer SELFPAY ==
--- NOTE | 2021-07-14 14:01 | RAD REPORT ---
EXAM DESCRIPTION: RAD - Hand Right 3 View - 07/14/2021 1:54 pm CLINICAL HISTORY: PAIN COMPARISON: No comparisonsNo comparisons FINDINGS: No acute fracture. No malalignment. No significant focal degenerative changes. IMPRESSION: No acute osseous abnormality involving the right hand.
--- NOTE | 2021-07-14 14:12 | ER ---
Nurse's Notes [facility] Name: Mauro Ruth Age: 20 yrs Sex: Male : 2000 Arrival Date: 07/14/2021 Time: 13:09 Bed 12 Private MD: Diagnosis: Pain in right hand;Sprain of unspecified part of right wrist and hand Presentation: 07/14 13:13 Chief complaint: Patient states: "I think I hurt my right hand working and it's been aa5 going on for 3 days now". Coronavirus screen: At this time, the client does not indicate any symptoms associated with coronavirus-19. Ebola Screen: No symptoms or risks identified at this time. Initial Sepsis Screen: Does the patient meet any 2 criteria? No. Patient's initial sepsis screen is negative. Does the patient have a suspected source of infection? No. Patient's initial sepsis screen is negative. Risk Assessment: Do you want to hurt yourself or someone else? Patient reports no desire to harm self or others. Onset of symptoms was July 2021. 13:13 Method Of Arrival: Ambulatory aa5 13:13 Acuity: KATHY 4 aa5 Historical: - Allergies: 13:15 No Known Allergies; aa5 - PMHx: 13:15 None; aa5 - PSHx: 13:15 None; aa5 - Immunization history:: Immunization history: Client reports having NOT received the Covid vaccine. - Social history:: Smoking status: Patient reports the use of cigarette tobacco products. - Family history:: not pertinent. - Hospitalizations: : No recent hospitalization is reported. Screenin:17 Abuse screen: Denies threats or abuse. Nutritional screening: No deficits noted. aa5 Tuberculosis screening: No symptoms or risk factors identified. Fall Risk None identified. Assessment: 13:16 General: Appears comfortable, Behavior is calm, cooperative. Pain: Complains of pain in aa5 palm of right hand. Neuro: Level of Consciousness is awake, alert, obeys commands, Oriented to person, place, time, situation. Cardiovascular: Patient's skin is warm and dry. Respiratory: Airway is patent Respiratory effort is even, unlabored, Respiratory pattern is regular, symmetrical. GI: No signs and/or symptoms were reported involving the gastrointestinal system. : No signs and/or symptoms were reported regarding the genitourinary system. EENT: No signs and/or symptoms were reported regarding the EENT system. Derm: Skin is pink, warm \\T\\ dry. Musculoskeletal: Reports pain in right hand. Vital Signs: 13:13 BP 120 / 60; Pulse 74; Resp 18 S; Temp 98.2(O); Pulse Ox 98% on R/A; Weight 117.93 kg aa5 (R); Height 5 ft. 9 in. (175.26 cm) (R); 13:13 Body Mass Index 38.39 (117.93 kg, 175.26 cm) aa5 ED Course: 13:09 Patient arrived in ED. am2 13:13 Arm band placed on. aa5 13:13 Patient has correct armband on for positive identification. aa5 13:15 Triage completed. aa5 13:29 Julio C Wheeler MD is Attending Physician. rn 13:54 XRAY Hand RIGHT 3 View In Process Unspecified. EDMS 14:28 No provider procedures requiring assistance completed. Patient did not have IV access ll3 during this emergency room visit. Administered Medications: No medications were administered Outcome: 14:11 Discharge ordered by . rn 14:28 Discharged to home ambulatory. ll3 14:28 Condition: stable 14:28 Discharge instructions given to patient, Instructed on discharge instructions, follow up and referral plans. Demonstrated understanding of instructions, follow-up care. 14:29 Patient left the ED. ll3 Signatures: Dispatcher [employer] EDMS Julio C Wheeler MD MD rn Calderon, Audri, RN RN aa5 Nancy Mari am2 Mally Kinney RN RN ll3 Corrections: (The following items were deleted from the chart) 13:18 13:13 Pulse 74bpm; Resp 18bpm; Spontaneous; Pulse Ox 98% RA; Temp 98.2F Oral; 117.93 kg aa5 Reported; Height 5 ft. 9 in. Reported; BMI: 38.3; aa5
--- NOTE | 2021-07-14 14:12 | EDPHYS ---
Physician Documentation [facility] Name: Mauro Ruth Age: 20 yrs Sex: Male : 2000 Arrival Date: 07/14/2021 Time: 13:09 Bed 12 Private MD: ED Physician Julio C Wheeler HPI: 07/14 14:06 This 20 yrs old Male presents to ER via Ambulatory with complaints of Hand rn Pain. 14:06 The patient or guardian reports pain. The complaints affect the right hand diffusely. rn Context: The problem was sustained at work, resulted from a repetitive motion. 14:07 Onset: The symptoms/episode began/occurred 3 day(s) ago. Modifying factors: The rn symptoms are alleviated by nothing, the symptoms are aggravated by movement. Associated signs and symptoms: Pertinent negatives: cyanosis distally, decreased sensation distally, fever, numbness distally, tingling distally. Severity of symptoms: At their worst the symptoms were moderate, in the emergency department the symptoms are unchanged. The patient has not experienced similar symptoms in the past. The patient has not recently seen a physician. 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 Has noticed pain at the base of the right thumb but no obvious injury or acute injury. States has tried ice and not helping. Denies any puncture wounds. Denies fever. Hurts while working and wanted to get it checked out.. Historical: - Allergies: 13:15 No Known Allergies; aa5 - PMHx: 13:15 None; aa5 - PSHx: 13:15 None; aa5 - Immunization history:: Immunization history: Client reports having NOT received the Covid vaccine. - Social history:: Smoking status: Patient reports the use of cigarette tobacco products. - Family history:: not pertinent. - Hospitalizations: : No recent hospitalization is reported. ROS: 14:07 Constitutional: Negative for fever, chills, and weight loss, MS/Extremity: Negative for rn injury, positive for pain and repetitive motion Skin: Negative for injury, rash, and discoloration, Neuro: Negative for numbness/tingling/weakness Exam: 14:07 Constitutional: This is a well developed, well nourished patient who is awake, alert, rn and in no acute distress. Skin: Warm, dry with normal turgor. Normal color with no rashes, no lesions, and no evidence of cellulitis. MS/ Extremity: Pulses equal, no cyanosis. Neurovascular intact. Painful range of motion when making fist and at the base of the right thumb. No ecchymosis, no erythema, no warmth. Vital Signs: 13:13 BP 120 / 60; Pulse 74; Resp 18 S; Temp 98.2(O); Pulse Ox 98% on R/A; Weight 117.93 kg aa5 (R); Height 5 ft. 9 in. (175.26 cm) (R); 13:13 Body Mass Index 38.39 (117.93 kg, 175.26 cm) aa5 MDM: 13:29 Patient medically screened. rn 14:07 Differential diagnosis: tendonitis, repetitive injury, stress fracture, contusion. Data rn reviewed: vital signs, nurses notes, radiologic studies, plain films, and as a result, I will discharge patient. Test interpretation: by ED physician or midlevel provider: plain radiologic studies, X-ray right hand without fracture or dislocation. No foreign body.. Counseling: I had a detailed discussion with the patient and/or guardian regarding: the historical points, exam findings, and any diagnostic results supporting the discharge/admit diagnosis, radiology results, the need for outpatient follow up, to return to the emergency department if symptoms worsen or persist or if there are any questions or concerns that arise at home. Special discussion: I discussed with the patient/guardian in detail that at this point there is no indication for admission to the hospital. It is understood, however, that if the symptoms persist or worsen the patient needs to return immediately for re-evaluation. 07/14 13:35 Order name: XRAY Hand RIGHT 3 View; Complete Time: 14:05 rn Administered Medications: No medications were administered Disposition Summary: 07/14/21 14:11 Discharge Ordered Location: Home rn Problem: new rn Symptoms: have improved rn Condition: Stable rn Diagnosis - Pain in right hand rn - Sprain of unspecified part of right wrist and hand rn Followup: rn - With: Private Physician - When: As needed - Reason: Recheck today's complaints, Re-evaluation by your physician Discharge Instructions: - Discharge Summary Sheet rn - Musculoskeletal Pain rn - Hand Exercises rn - Hand Pain rn Forms: - Medication Reconciliation Form rn - Thank You Letter rn - Antibiotic pattern chart writer - Prescription Opioid Use rn - Work release form ll3 Signatures: Dispatcher [employer] Julio C Summers MD MD rn Calderon, Audri RN RN aa5
[2021-07-14 14:47] VITALS: BP 120/60; TEMP 98.2; O2SAT 98
== END 2021-07-14 14:29 | disposition home or self-care (01) ==
LOC: ER 13:07
DX: S63.91XA Sprain of unspecified part of right wrist and hand, initial encounter (principal); X50.3XXA Overexertion from repetitive movements, initial encounter; Y93.89 Activity, other specified; Y92.89 Other specified places as the place of occurrence of the external cause; Y99.8 Other external cause status; Z72.0 Tobacco use
CPT/HCPCS: 99283

== ENCOUNTER 2021-08-19 15:02 | Emergency (ER) | payer SELFPAY ==
--- NOTE | 2021-08-19 19:50 | ER ---
Nurse's Notes [facility] Name: Mauro Ruth Age: 20 yrs Sex: Male : 2000 Arrival Date: 08/19/2021 Time: 15:03 Bed Waiting Private MD: Diagnosis: Presentation: 08/19 15:27 Chief complaint: Patient states: spider bite to lateral aspect of R thigh. Pt reports ss that it began yesterday, became worse this am. Coronavirus screen: Client denies travel out of the [place] in the last 14 days. Ebola Screen: Patient denies exposure to infectious person. Patient denies travel to an Ebola-affected area in the 21 days before illness onset. Initial Sepsis Screen: Does the patient meet any 2 criteria? No. Patient's initial sepsis screen is negative. Does the patient have a suspected source of infection? Yes: Skin breakdown/wound. Risk Assessment: Do you want to hurt yourself or someone else? Patient reports no desire to harm self or others. Onset of symptoms was August 18, 2021. 15:27 Method Of Arrival: Ambulatory ss 15:27 Acuity: KATHY 4 ss Historical: - Allergies: 15:29 No Known Allergies; ss - Home Meds: 15:29 None [Active]; ss - PMHx: 15:29 None; ss - PSHx: 15:29 None; ss - Immunization history:: Client reports having NOT received the Covid vaccine. - Social history:: Smoking status: Patient reports the use of cigarette tobacco products, smokes one-half pack cigarettes per day. Assessment: 19:14 Reassessment: pt called from [facility], no response. vg1 Vital Signs: 15:27 BP 128 / 67; Pulse 76; Resp 16; Temp 98.0(TE); Pulse Ox 97% on R/A; Weight 81.65 kg; ss Height 5 ft. 9 in. (175.26 cm); Pain 8/10; 15:27 Body Mass Index 26.58 (81.65 kg, 175.26 cm) ED Course: 15:03 Patient arrived in ED. kc5 15:28 Triage completed. ss 15:29 Arm band placed on left wrist. ss Administered Medications: No medications were administered Outcome: 19:50 Patient left the ED. ld1 Signatures: Kinsey Beltran, RN RN ss Rosalia Alberto, RN RN vg1 Gaviota Stark, RN RN ld1 Staci Gloria5
[2021-08-19 19:55] VITALS: BP 128/67; TEMP 98; O2SAT 97
== END 2021-08-19 19:50 | disposition left against medical advice (07) ==
LOC: ER 15:02
DX: T63.301A Toxic effect of unspecified spider venom, accidental (unintentional), initial encounter (principal); Z53.21 Procedure and treatment not carried out due to patient leaving prior to being seen by health care provider
CPT/HCPCS: 99281